=== PATIENT | male | born 1990 | race Caucasian/White ===

== ENCOUNTER → 2022-11-05 09:59 | Outpatient (BNVA) | payer BC, SELFPAY | PROVIDERS: PCP Internal Medicine; Visit Provider Nurse Practitioner Family | DX: Z13.89 Encounter for screening for other disorder (principal) ==

== ENCOUNTER → 2022-11-20 08:38 | Outpatient (BNVA) | payer OTHER, SELFPAY | PROVIDERS: PCP Internal Medicine; Visit Provider Physician Assistant | DX: S93.401A Sprain of unspecified ligament of right ankle, initial encounter (principal); W01.0XXA Fall on same level from slipping, tripping and stumbling without subsequent striking against object, initial encounter | CPT/HCPCS: 73610; 99203 ==

== ENCOUNTER 2022-11-20 10:26 | Outpatient (REF) | payer BC, SELFPAY ==
--- NOTE | ~2022-11-20 | MR_ITS ---
EXAMINATION: MR ANGIOGRAPHY HEAD WITHOUT CONTRAST MR VENOGRAPHY OF THE HEAD WITHOUT AND WITH CONTRAST CLINICAL INFORMATION: Trigeminal neuralgia. Follow-up. COMPARISON: MRI scan of the [facility] 08/07/2021. TECHNIQUE: 3D time of flight MR angiography of the intracranial vasculature was obtained. MR venography of the head was obtained using 2-D, 3-D and TRICKS sequences. Reformatted images were generated at the technologist workstation and source images were reviewed along with rotating MIPs. The degree of stenosis is based off NASCET criteria. FINDINGS: MRA head: In the anterior circulation, the distal internal carotid arteries within the neck appear normal. The intracranial internal carotid arteries and their bifurcations appear normal. The middle and anterior cerebral arteries bilaterally demonstrate normal caliber with no evidence of focal stenosis, aneurysm or vascular malformation. The anterior communicating artery is normal. In the posterior circulation, the vertebral arteries are codominant. The vertebral arteries intradurally have uniform caliber. The basilar artery appears normal. The posterior cerebral arteries have normal caliber. MRV head: The right transverse sinus is dominant and patent. The thinner left transverse sinus demonstrates flow throughout. There is an arachnoid granulation laterally in the left transverse sinus, demonstrated on the prior MRI brain. The sigmoid sinuses bilaterally are patent. There is asymmetric caliber of the proximal internal jugular veins, larger on the right, consistent with a normal variant. The superior sagittal sinus is well opacified. The internal cerebral veins, great vein of Thuan and straight sinus are patent. No vascular malformations are demonstrated. MR/MR venography head wo/w con IMPRESSION: 1. MR angiography of the intracranial circulation does not demonstrate focal stenosis, aneurysm or vascular malformation. The study is within normal limits. 2. The dural venous sinuses and internal jugular veins are patent bilaterally. The left transverse sinus is thinner compared to the right, consistent with a normal variant. The study redemonstrates an arachnoid granulation in the lateral left transverse sinus. There are no vascular malformations.
== END 2022-11-20 10:27 | disposition home or self-care (01) ==
LOC: HO.MRI 10:26
PROVIDERS: PCP Internal Medicine; Visit Provider Nurse Practitioner Family
DX: G50.0 Trigeminal neuralgia (principal); G51.39 Clonic hemifacial spasm, unspecified
CPT/HCPCS: 70544; 70546; A9585

== ENCOUNTER → 2022-11-27 11:13 | Outpatient (BNVA) | payer OTHER, SELFPAY | PROVIDERS: PCP Internal Medicine; Visit Provider Physician Assistant Medical | DX: S93.401A Sprain of unspecified ligament of right ankle, initial encounter (principal); W01.0XXA Fall on same level from slipping, tripping and stumbling without subsequent striking against object, initial encounter | CPT/HCPCS: 99213 ==

== ENCOUNTER 2022-12-02 14:02 | Outpatient (REF) | payer OTHER, SELFPAY ==
--- NOTE | ~2022-12-02 | XR_ITS ---
EXAMINATION: XR ANKLE, RIGHT XR FOOT, RIGHT CLINICAL INFORMATION: Pain and unspecified foot and ankle COMPARISON: Right ankle radiographs 11/20/2022 TECHNIQUE: Right ankle 3 views. Right foot 3 views. FINDINGS: Right ankle: Moderate soft tissue swelling is seen anterior and lateral to the ankle and proximal foot. The ankle mortise is symmetric without visible fracture or dislocation. No diastases of the distal tibiofibular syndesmosis. Right foot: Soft tissue swelling is identified laterally and dorsally. A displaced fracture is seen at the base of the fifth metatarsal bone extending to the tarsometatarsal joint. The bones of the foot are otherwise normal without joint space narrowing. XR/XR ankle RT min 3V IMPRESSION: Right ankle soft tissue swelling without visible fracture or dislocation. Displaced fracture is seen at the base of the fifth metatarsal bone extending to the tarsometatarsal joint.
--- NOTE | ~2022-12-02 | XR_ITS ---
EXAMINATION: XR ANKLE, RIGHT XR FOOT, RIGHT CLINICAL INFORMATION: Pain and unspecified foot and ankle COMPARISON: Right ankle radiographs 11/20/2022 TECHNIQUE: Right ankle 3 views. Right foot 3 views. FINDINGS: Right ankle: Moderate soft tissue swelling is seen anterior and lateral to the ankle and proximal foot. The ankle mortise is symmetric without visible fracture or dislocation. No diastases of the distal tibiofibular syndesmosis. Right foot: Soft tissue swelling is identified laterally and dorsally. A displaced fracture is seen at the base of the fifth metatarsal bone extending to the tarsometatarsal joint. The bones of the foot are otherwise normal without joint space narrowing. XR/XR foot RT min 3V IMPRESSION: Right ankle soft tissue swelling without visible fracture or dislocation. Displaced fracture is seen at the base of the fifth metatarsal bone extending to the tarsometatarsal joint.
== END 2022-12-02 14:03 | disposition home or self-care (01) ==
LOC: HO.HOSX 14:02
PROVIDERS: PCP Internal Medicine; Visit Provider Physician Assistant
DX: S92.351A Displaced fracture of fifth metatarsal bone, right foot, initial encounter for closed fracture (principal)
CPT/HCPCS: 73610; 73630; 99202

== ENCOUNTER 2022-12-30 07:55 | Outpatient (REF) | payer OTHER, SELFPAY ==
--- NOTE | ~2022-12-30 | XR_ITS ---
EXAMINATION: XR FOOT, RIGHT CLINICAL INFORMATION: Right foot pain COMPARISON: None available. TECHNIQUE: AP, lateral, and oblique views of the right foot. FINDINGS: There are subtle lucency seen in the base of fifth metatarsal question nondisplaced fracture. There is no significant soft tissue swelling. Rest of the right foot is normal. The ankle mortise and subtalar joints are normal. XR/XR foot RT min 3V IMPRESSION: Subtle lucency along the base of fifth metatarsal question fracture. No soft tissue swelling seen. Correlate with clinical exam. Rest of the right foot is unremarkable.
== END 2022-12-30 07:56 | disposition home or self-care (01) ==
LOC: HO.HOSX 07:55
PROVIDERS: Visit Provider Physician Assistant
DX: S92.351A Displaced fracture of fifth metatarsal bone, right foot, initial encounter for closed fracture (principal)
CPT/HCPCS: 73630; 99212

== ENCOUNTER 2023-01-27 07:13 | Outpatient (REF) | payer OTHER, SELFPAY ==
--- NOTE | ~2023-01-27 | XR_ITS ---
EXAMINATION: XR FOOT, RIGHT CLINICAL INFORMATION: Pain. COMPARISON: 12/30/2022 and 12/02/2022. TECHNIQUE: AP, lateral, and oblique views of the right foot. FINDINGS: There is no significant change in alignment of fracture base of the 5th metatarsal with some bony union being present. XR/XR foot RT min 3V IMPRESSION: No change in alignment of fracture base of the 5th metatarsal with some degree of bony union evident.
== END 2023-01-27 07:14 | disposition home or self-care (01) ==
LOC: HO.HOSX 07:13
PROVIDERS: Visit Provider Physician Assistant
DX: S92.351A Displaced fracture of fifth metatarsal bone, right foot, initial encounter for closed fracture (principal)
CPT/HCPCS: 73630; 99212

== ENCOUNTER → 2023-02-24 13:02 | Outpatient (BNVA) | payer OTHER, BC, SELFPAY | PROVIDERS: PCP Internal Medicine; Visit Provider Physician Assistant | DX: M25.571 Pain in right ankle and joints of right foot (principal); S92.351D Displaced fracture of fifth metatarsal bone, right foot, subsequent encounter for fracture with routine healing; W08.XXXD Fall from other furniture, subsequent encounter | CPT/HCPCS: 99212 ==

== ENCOUNTER → 2023-03-03 10:21 | Outpatient (BNVA) | payer OTHER, BC, SELFPAY | PROVIDERS: PCP Internal Medicine; Visit Provider Nurse Practitioner Family | DX: G50.0 Trigeminal neuralgia (principal); R53.83 Other fatigue; G51.39 Clonic hemifacial spasm, unspecified; G47.31 Primary central sleep apnea; M26.609 Unspecified temporomandibular joint disorder, unspecified side | CPT/HCPCS: 99212 ==

== ENCOUNTER 2023-03-13 09:03 | Outpatient (REF) | payer OTHER, BC, SELFPAY | END 2023-03-13 09:04 | disposition home or self-care (01) | LOC: HO.HOSX 09:03 | PROVIDERS: Visit Provider Physician Assistant | DX: Z13.89 Encounter for screening for other disorder (principal) ==

== ENCOUNTER 2023-03-19 12:05 | Outpatient (REF) | payer OTHER, SELFPAY ==
--- NOTE | ~2023-03-19 | XR_ITS ---
EXAMINATION: XR FOOT, RIGHT CLINICAL INFORMATION: Foot pain. COMPARISON: Plain films dating between January 27, 2023 and December 02, 2022. TECHNIQUE: AP, lateral, and oblique views of the right foot. FINDINGS: Examination again demonstrates an avulsion fracture at the base of metatarsal bone, similar compared with most recent prior study from January 27, 2023. No gross callus formation is appreciated. No other fracture or dislocation is seen. The joint spaces appear maintained. Bony mineralization appears preserved. No joint effusion is noted. There is a small Achilles calcaneal spur. XR/XR foot RT min 3V IMPRESSION: No significant radiographic change compared with January 27, 2023.
== END 2023-03-19 12:06 | disposition home or self-care (01) ==
LOC: HO.XRAY 12:05
PROVIDERS: PCP Internal Medicine; Visit Provider Physician Assistant
DX: M79.671 Pain in right foot (principal)
CPT/HCPCS: 73630

== ENCOUNTER 2023-03-27 14:00 | Outpatient (RCR) | payer OTHER, BC, SELFPAY ==
[2023-02-16 12:55] VITALS: BP 140/80; PULSE 98; O2SAT 97
--- NOTE | 2023-03-10 10:07 | MHC.PT.OD ---
[facility] [place] Office [place] Office [place] Office [address] Clemencia Black [address] [phone] F: [phone] F: [phone] F: [phone] F: [phone] Physical Therapy Daily Note Diagnosis: PT eval and treat: S92.351A Displaced fracture of fifth metatarsal bone, right foot, initial encounter for closed fracture, signed by Elsie Rogel PA-C 01/27/23 Date of Surgery: Date of Evaluation: 02/16/23 Date of Treatment: 03/09/23 Treatments to Date: Cancellations to Date: No Shows to Date: Authorized Visits: 5 Insurance End Date: Precautions/ Contraindications:clearance to wean from boot: ortho note 01/27/23 see note Subjective: Pt presents to office without boot, reports soreness under his R 5th ray, today Its only like a 4 or 5 when its really bad, but its kind of achy. The nerve pain on top of my foot is very sharp but come and goes. I have been doing stairs at home more so Im not sure if thats why its more sore of what. Pain Score and Location: 4 Objective Flowsheet: Tests & Measures XR/XR foot RT min 3V IMPRESSION: No change in alignment of fracture base of the 5th metatarsal with some degree of bony union evident. Dictated By:Ronen Carter MD Signed By:<Electronically signed by Ronen Carter MD in OV>02/04/23 1321 [address] [facility] [address] [place] [id number] Office Visit Report Signed Patient: Concetta Aranda#: [id number] : 1990Acct:[id number] Age/Sex: 32 / MADM/SER Date: 02/24/23 Loc: HO.HOSADM/SER Time:1302 Attending Provider: Elsie Rogel PA-C cc: JONATHAN GALLAGHER DO~ Intake Vital Signs 02/24/23 13:11 Height 5 ft 8 in Weight 170 lb BMI 25.8 Intake Visit Reasons: ov- Right ankle pain, DOI 11/20/21 Intake Note: Sami is a 32 year old male who presents today for a follow up of his right 5th metatarsal fx, DOI 11/20/21. Patient reports some achenes after walking without the boot. He states that on the top of his foot feels like there is a pinched nerve when he runs his finger on it. PT is going well. Allergies No Known Allergies Allergy (Verified 02/24/23 13:11) HPI ov- Right ankle pain, DOI 11/20/21 HPI Details 32-year-old male who presents in the office today for an evaluation of right ankle pain status post a right 5th metatarsal fracture, which occurred on 11/20/2022 status post a fall from a step stool, about 3 feet off the ground, at work. The patient reports some achiness after ambulating without the boot. He claims to have a pinching nerve on the top of his foot when he runs his finger on it. He confirms participating in physical therapy and states it is going well. He stated he started last Thursday02/16/2023. 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 Review of Systems Const All systems reviewed & are unremarkable except as noted in HPI and below Physical Exam Vital Signs: BMI result Body Mass Index 25.8 Const General: cooperative and no acute distress Orientation/consciousness: patient oriented x3 Resp Effort & Inspection: normal respiratory effort and able to speak in complete sentences Cardio Rate: regular rate Peripheral pulses: Peripheral pulses 2+ throughout GI Palpation (GI): Soft to palpation Skin Lesions: no lesions Rashes: no rashes Neuro General: patient oriented x3 Extrem Other: Right foot: No tenderness to palpation at the base of the 5th metatarsal. Slight hypersensitivity between the great toe and 2nd toe metatarsals. Slight stiffness with ankle ROM. Sensation intact. Pedal pulse intact. Psych Mental Status: mental status grossly normal Assessment & Plan Assessment & Plan (1) Fracture of fifth metatarsal bone of right foot: Code(s): S92.351A - Displaced fracture of fifth metatarsal bone, right foot, initial encounter for closed fracture Plan Mr. Aranda is a 32-year-old male who presents in the office today for an evaluation of right ankle pain status post a right 5th metatarsal fracture, which occurred on 11/20/2022 status post a fall from a step stool, about 3 feet off the ground, at work. The patient reports some achiness after ambulating without the boot. He claims to have a pinching nerve on the top of his foot when he runs his finger on it. He confirms participating in physical therapy and states it is going well. He stated he started last Thursday02/16/2023. The patient will continue to work with physical therapy on ROM. He will begin to wean out of the boot. He was instructed he is able to drive. He was given a return to work note stating he was return for light duty sedentary work in 2 weeks. Follow up will be in 6 weeks, or sooner if needed. Patient Instructions: Scribed for Elsie Rogel PA-C by Valery Alcala medical office receptionist assistant, on 02/24/2023 at 1:04 pm, EST. Your attestation Coding Level of Care Code Est Pt Level 3 (99529) Diagnoses Fracture of fifth metatarsal bone of right foot S92.351A Documented By:Elsie Rogel-C0/ 1307 Exercises Seated upright bike level 4.0 x 10 minutes for warm-up gentle AROM (no complaints of foot/ankle pain with this). 4 way SLR into flexion/hip adduction, prone hip extension and SL hip abd (completed bilaterally), step-up from 6 inch leading with R LE x 2sets 10R, lateral step-up/down from 6 inch (going from L<>R and R<>L). Ankle DF/PF/ IV/EV and R great toe extension ROM full compared to uninvolved extremity. Step-up 6 inch leading with R LE x 4 sets 10R, lateral step up with 6 inch step x 4 sets 10R (at completion, its getting a little sore ). Modalities Assessment: 03/09/23: Pt noted to attempt to crouch down (on his own accord) while in the office, reports increased pressure at site of fracture (advised to refrain from that due to load at site of 5th ray, educated needs to be able to walk/stand/steps prior to kneeling/crouching on injury site). Pt expressing he has anxiety regarding clearance for RTW light duty (has not spoken to employer and has not yet reached out his own to determine if light duty was an approved option). Therapist phoned [facility] ortho for patient while he was in the office to see if any further clarification of light duty has been established as pt reports his employer was requesting more info for work restrictions. Therapist was informed by ortho rep Trent patient has a tentative follow up on 04/13/23 but was advised to wean from boot in PT, work on ROM, RTW light duty in 2 weeks. Patient has weaned from walking boot, exhibits full ROM but expressing some mild soreness in foot at arrival of visit. He reports ongoing nerve pain dorsum of foot radiating to great toe intermittently and inquires about need for further imaging. Pt Therapist encouraged patient to monitor sx and bring to attention of orthopedics during next session should sx persist. Pt able to complete some step-ups with no report of pain, some fatigue/soreness verbalized with attempt of lateral step downs on 6 inch step (reported sx at end of 20 reps). Pt was advised to reach out to employer to determine status of ability to return to work light duty. Pt would likely benefit from another follow up with ortho prior to 04/13/23 to achieve further clarification /clearance for higher level> strengthening in PT as recent xray indicated partial union of fracture (not complete). Pt continues to be challenged with SLR 4 way ([id number]) and requires cues for technique. Pt noted to perseverate on concern for potential RTW light duty tomorrow and was encouraged to make calls to his employer to determine status which would help aide his anxiety. Pt has resumed driving (standard vehicle). 03/03/23: Pt expressing some mild sx with descending stairs on 2 inch step (R LE on steps, ascending with L LE) with sneaker on today. Improved tolerance after completing some gentle posteripr talo-crucal glides while standing/performing step-downs. Intermittent report of parathesias along dorsum of foot (parallel with anterior tibialis). Pt benefitted from cues for ther-ex, expressed fatigue with BAPS board for ROM activity. Pt awaiting clearance in his ability to RTW (reports waiting to hear back from environmental services). 02/27/23 Pt presents to office wearing a sneaker, reports he has fully D/C use of walking boot since his last ortho appt . Pt reports driving himself to therapy with good tolerance today (drives a standard vehicle). Reports feeling under the weather today with a history of head cold/congestion/stomach upset sx, denies fever, repots (-) covid test at home. AROM of the R ankle is near symmetrical to uninvolved side with minor ROM deficits in EV/IV. He was progressed in gentle CKC and ankle strength with good tolerance with no report of pain. He reports icing the foot prn status and iced at end of session today with good outcomes. He is awaiting clearance for RTW light duty status (reports his employed is seeking more clarification from ortho follow up re: restrictions). He reports planning on trying on a steel toe boot in prep to assess himself. He continues to use tylenol prn. 02/20/23 Pt able to complete CKC in office with good tolerance without use of book (sneaker on). Pt expressing he has a follow up with ortho next Thursday. Verbalizes goal of RTW, questions his ability to obtain light duty return. Pt inquires about clearance to drive- advised to consult with orthopedics about this at time of next appt. Weak knee and hip musculature. Significant toe out/hip ER compensation (+) genu varus alignment noted bilaterally. Pt advise to gradually wean from use of boot over the weekend as able (as long as pain-free). Pt is LHD UE, right foot dominant 32 y/o male, referred to PT from 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 Pt presents to PT in a tall walking boot with using bilateral axillary crutches. Pt expressing at time of appt with ortho he was advised to wean from use of tall walking boot but has yet to trial this expressed concern for how to do this. Pt was noted to attempt to ambulate in the office without crutches with tall walking boot with good ability, was advised to D/C crutches and wean from use of walking boot as able starting in small durations of time first. Pt exhibits impaired AROM of the R foot/ankle, impaired strength (DF/PF/IV/EV, hip abd ext R LE). Pt exhibits mild edema inferior/lateral aspect of R base 5th metatarsal. Pt exhibits impaired tolerance for weight-bearing outside of boot, impaired strength, impaired ability to rise>lower>squat>kneel and climb ladders. Pt is currently not driving. Pt remains OOW since date of injury. Pt would benefit from attending skilled PT services at a frequency of 2x/week 6 weeks to address impairments, implement HEP, and restore functional mobility tolerance to resume PLOF. Pt was advised re: use of ice, goals of therapy, and findings of evaluation. He was advised to bring a sneaker to next session and trial short durations of using a sneaker at home prior to next appt. PT Plan: 2x/week x 6 weeks Await clarification from ortho ? pause PT for next xray/healing vs. clearance for painfree strengthening Short Term Goals: 1. R ankle AROM to resemble L LE. 2. Strength R ankle EV/IV to 4/5. 3. Strength R ankle PF/DF 4/5. 4. Pt will wean from use of tall boot walking boot as able and D/C use of crutches. 5. 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 6. Symmetrical standing without walking boot R LE. 6. Negotiate 4 inch step with good dynamic balance independent of walking boot. Network Support Technician Goals: 1. Strength 5/5. 2. Pt will perform function squat 3:3 trials. 3. Pt will RTW full duty with good joint protection/mechanics. 4. Demonstrate dynamic balance reciprocal stair climbing > 6 inch step. 5. Rise from half knee position L>R and R>L. 6. Pain < 2/10 R ankle/foot R LE during functional mobility. 7. Reciprocal stair negotiation I of walking boot. 8. Resume jogging>running MOD I no AD. Electronically signed by: Rasheeda Jasso PT, DPT
== END 2023-09-22 11:25 | disposition home or self-care (01) ==
LOC: HO.PTWFD 14:00
PROVIDERS: Visit Provider Physician Assistant
DX: S92.351A Displaced fracture of fifth metatarsal bone, right foot, initial encounter for closed fracture (principal)
CPT/HCPCS: 97110; 97116; 97150; 97162; 97535

== ENCOUNTER 2023-04-13 11:01 | Outpatient (REF) | payer OTHER, SELFPAY ==
--- NOTE | ~2023-04-13 | XR_ITS ---
EXAMINATION: XR FOOT, RIGHT CLINICAL INFORMATION: Pain in unspecified foot COMPARISON: Prior radiographs of the foot, most recently 03/19/2023 TECHNIQUE: AP, lateral, and oblique views of the right foot. FINDINGS: Overall the appearance of the avulsive fracture at the base of the fifth metatarsal is similar to the most recent prior radiograph. There is no new fracture. Alignment is maintained and unchanged from prior studies. Soft tissues are unremarkable joint spaces are maintained. XR/XR foot RT min 3V IMPRESSION: Essentially no change in the appearance of healing fracture at the base of the fifth metatarsal.
== END 2023-04-13 11:02 | disposition home or self-care (01) ==
LOC: HO.HOSX 11:01
PROVIDERS: Visit Provider Physician Assistant
DX: S92.351D Displaced fracture of fifth metatarsal bone, right foot, subsequent encounter for fracture with routine healing (principal)
CPT/HCPCS: 73630

== ENCOUNTER 2023-04-13 11:28 | Outpatient (AMB) | payer OTHER, BC, SELFPAY ==
[2023-04-13 11:33] VITALS: BMI 24.5
--- NOTE | 2023-04-13 11:33 | MHC.OFFVIS ---
Intake Vital Signs 04/13/23 11:33 Height 5 ft 8 in Weight 161 lb BMI 24.5 Intake Visit Reasons: ov- Right ankle pain, DOI 11/20/21 Intake Note: Sami is a 32 year old male who presents today for a follow up of his right 5th metatarsal fx, DOI 11/20/21. Patient report some soreness on the top of his right foot. He states that physical therapy is going well. Denies numbness and tingling. Allergies No Known Allergies Allergy (Verified 04/13/23 11:33) HPI ov- Right ankle pain, DOI 11/20/21 HPI Details 32-year-old male who presents in the office today for a follow up of a right foot 5th metatarsal fracture, which occurred on 11/20/2022 status post a fall from a step stool, about 3 feet off the ground, at work. The patient reports some soreness on the top of the right foot. He confirms participating in physical therapy and states it is going well. He denies numbness or tingling. 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 Review of Systems Const All systems reviewed & are unremarkable except as noted in HPI and below Physical Exam Vital Signs: BMI result Body Mass Index 24.5 Const General: cooperative and no acute distress Orientation/consciousness: patient oriented x3 Resp Effort & Inspection: normal respiratory effort and able to speak in complete sentences Cardio Rate: regular rate Peripheral pulses: Peripheral pulses 2+ throughout GI Palpation (GI): Soft to palpation Skin Lesions: no lesions Rashes: no rashes Neuro General: patient oriented x3 Extrem Other: Right foot: No tenderness to palpation at the base of the 5th metatarsal. Slight hypersensitivity between the great toe and 2nd toe metatarsals. Full ROM. Sensation intact. Pedal pulse intact. Psych Mental Status: mental status grossly normal Assessment & Plan Assessment & Plan (1) Fracture of fifth metatarsal bone of right foot: Code(s): S92.351A - Displaced fracture of fifth metatarsal bone, right foot, initial encounter for closed fracture Plan Mr. Aranda is a 32-year-old male who presents in the office today for a follow up of a right foot 5th metatarsal fracture, which occurred on 11/20/2022 status post a fall from a step stool, about 3 feet off the ground, at work. The patient reports some soreness on the top of the right foot. He confirms participating in physical therapy and states it is going well. He denies numbness or tingling. The patient may return to work on 04/20/2023 for 6 hours a day for 2 weeks. 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 Follow up will be PRN, or sooner if needed. X-rays of the right foot which were obtained while in the office today and were reviewed by me, Elsie Rogel PA-C, redemonstration of the avulsion fracture at the base of the 5th metatarsal. Orders: Orders XR foot RT min 3V Today M79.673 - Pain in unspecified foot Patient Instructions: Scribed for Elsie Rogel PA-C by Valery Alcala medical receptionist medical assistant, on 04/13/2023 at 11:29 am, EST. Your attestation Coding Level of Care Code Global (77543) Diagnoses Fracture of fifth metatarsal bone of right foot S92.351A
== END 2023-04-13 11:51 | disposition home or self-care (01) ==
PROVIDERS: Visit Provider Physician Assistant
DX: S92.351A Displaced fracture of fifth metatarsal bone, right foot, initial encounter for closed fracture (principal)
CPT/HCPCS: 99213

== ENCOUNTER 2023-07-06 11:26 | Outpatient (AMB) | payer BC, SELFPAY ==
--- NOTE | 2023-07-06 11:31 | MHC.OFFVIS ---
Intake Vital Signs 07/06/23 11:32 Height 5 ft 8 in Weight 170 lb BMI 25.8 BP 150/90 H Blood Pressure Location Rt brachial Position Sitting Intake Visit Reasons: 4m follow up Trigeminal Neuralgia-Confirmed Intake Note: Patient presents for 4 month follow up. Patient states I've been talking to her, I think I'm going to start the medication by going up to 2. Allergies No Known Allergies Allergy (Verified 04/13/23 11:33) Medication List - Last Reconciled 07/06/23 by LEEANN Shannon acetaminophen 1,000 mg (2 x 500 mg) PO TID PRN amitriptyline 10 - 20 mg (1 - 2 x 10 mg) PO BEDTIME 30 days buprenorphine-naloxone 8-2 mg 10 mg sublingual DAILY magnesium oxide 400 mg PO BEDTIME 30 days oxcarbazepine 450 mg (1.5 x 300 mg) PO BID 30 days sertraline 50 mg PO DAILY testosterone cypionate 80 mg IM QWEEK HPI HPI Comments History of Present Illness Details 33-yr-old male presents for f/u visit. Pt denies any significant interval medical changes. Pt had reached out to the office, he was having some increased difficulty sleeping and facial pain. Pt was hesitant to increase Trileptal, and I advised him to try Amitriptyline 10-20mg qhs. He has started Amitriptyline 10mg qhs- which is has started helping him sleep better. He is still having some facial twitching. He is trying to reduce his Sertraline from 50mg to 25mg qd- as he feels he does not need it as much and it is causing some sexual side effects. He feels his anxiety is overall ok. Does not currently have a therapist- has a list to find a new one from his PCP. His father is currently being tested for PD. 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 Review of Systems Const All systems reviewed & are unremarkable except as noted in HPI and below Physical Exam Vital Signs: Last Vital Signs BP 150/90 H 07/06/23 11:32 BMI result Body Mass Index 25.8 Const General: cooperative and no acute distress Orientation/consciousness: patient oriented x3 HEENT Head: Yes normocephalic Resp Effort & Inspection: normal respiratory effort and able to speak in complete sentences Neuro General: patient oriented x3, gait normal and CN's II-XI intact bilaterally Cognition (Neuro): normal cognition Motor exam (neuro): 5/5 motor strength present throughout Psych Appearance: grossly normal Mental Status: mental status grossly normal Speech and movement: Normal speech and movement present Affect: normal affect Attitude: cooperative Thought process: Normal thought process present Thought content: Normal thought content present Insight: Good insight present (Psych) Judgement: Good judgement present (Psych) Assessment & Plan Assessment & Plan (1) 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 Last serum Na+- NL. Will request recent labs from PCP. Continue Amitriptyline- may increase from 10 to 20mg qhs. May use meloxicam prn. Magnesium for TMJ s/s. OTC nightguard. Future considerations: PT for TMJ tx. ? For sleep: Information given on improving sleep hygiene. Future considerations- f/u sleep study to assess status of CSA- suboxone may still induce CSA. ? f/u in 4 months or sooner prn. Medications: New buprenorphine ER (Sublocade) mg subcut Coding Level of Care Code Est Pt Level 4 (38933) Diagnoses Facial spasm G51.39 Trigeminal neuralgia G50.0 Central sleep apnea G47.31 TMJ (temporomandibular joint disorder) M26.149
[2023-07-06 11:32] VITALS: BP 150/90; BMI 25.8
== END 2023-07-06 12:22 | disposition home or self-care (01) ==
PROVIDERS: PCP Internal Medicine; Visit Provider Nurse Practitioner Family
DX: G51.39 Clonic hemifacial spasm, unspecified (principal); G50.0 Trigeminal neuralgia; G47.31 Primary central sleep apnea; M26.609 Unspecified temporomandibular joint disorder, unspecified side
CPT/HCPCS: 99214

== ENCOUNTER → 2023-07-06 11:26 | Outpatient (BNVA) | payer BC, SELFPAY | PROVIDERS: Visit Provider Nurse Practitioner Family | DX: G50.0 Trigeminal neuralgia (principal); R53.83 Other fatigue ==

== ENCOUNTER → 2023-07-28 10:44 | Outpatient (BNVA) | payer OTHER, SELFPAY | PROVIDERS: PCP Internal Medicine; Visit Provider Physician Assistant Medical | DX: S86.311A Strain of muscle(s) and tendon(s) of peroneal muscle group at lower leg level, right leg, initial encounter (principal); S93.491A Sprain of other ligament of right ankle, initial encounter; X50.1XXA Overexertion from prolonged static or awkward postures, initial encounter | CPT/HCPCS: 99203 ==

== ENCOUNTER → 2023-08-04 11:48 | Outpatient (BNVA) | payer OTHER, SELFPAY | PROVIDERS: PCP Internal Medicine; Visit Provider Physician Assistant Medical | DX: S86.311A Strain of muscle(s) and tendon(s) of peroneal muscle group at lower leg level, right leg, initial encounter (principal); S93.401A Sprain of unspecified ligament of right ankle, initial encounter; X50.1XXA Overexertion from prolonged static or awkward postures, initial encounter | CPT/HCPCS: 99213 ==

== ENCOUNTER 2023-08-13 11:37 | Outpatient (AMB) | payer OTHER, BC, SELFPAY ==
[2023-08-13 11:41] VITALS: BMI 25.8
--- NOTE | 2023-08-13 11:41 | A.OFFVIS_ITS ---
Intake Vital Signs 08/13/23 11:41 Height 5 ft 8 in Weight 170 lb BMI 25.8 Intake Visit Reasons: ov- Right ankle pain, DOI 07/24/23 Intake Note: Sami is a 32 year old male who presents today for a follow up of his right ankle pain, DOI 07/24/23. Patient reports still having pain, today he is having throbbing pain. He states that his pain is above his ankle Allergies No Known Allergies Allergy (Verified 08/13/23 11:41) HPI ov- Right ankle pain, DOI 07/24/23 HPI Details 33-year-old male who presents in the off ice today for an evaluation of right ankle pain. The patient was seen at [facility] on 07/28/2023 status post walking and twisting his right ankle which occurred on 07/24/2023. While in the office today the patient states he still has pain. He describes the pain as throbbing above the ankle. Patient has a history of right 5th metatarsal fracture, which occurred on 11/20/2022 status post a fall from a step stool, about 3 feet off the ground, at work. 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 No ecchymosis, erythema, or edema. Mild tenderness to palpation along the tibial and peroneal tendons. Full ROM. Negative anterior drawer. Sensation intact. Pedal Pulse intact. Assessment & Plan Assessment & Plan (1) Right ankle sprain: Code(s): S93.401A - Sprain of unspecified ligament of right ankle, initial encounter Qualifiers: Encounter type: initial encounter Involved ligament of ankle: unspecified ligament Qualified Code(s): S93.401A - Sprain of unspecified ligament of right ankle, initial encounter Plan Mr. Aranda is a 33-year-old male who presents in the office today for an evaluation of right ankle pain. The patient was seen at [facility] on 07/28/2023 status post walking and twisting his right ankle which occurred on 07/24/2023. While in the office today the patient states he still has pain. He describes the pain as throbbing above the ankle. Patient has a history of right 5th metatarsal fracture, which occurred on 11/20/2022 status post a fall from a step stool, about 3 feet off the ground, at work. The patient was given a lace up ankle brace, off the shelf, while in the office today. He was given a referral to physical therapy to work on ROM and strengthening. 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 Follow up will be PRN, or sooner if needed. X-rays of the right ankle which were obtained while in the office today and were reviewed by me, Elsie Rogel PA-C, revealed no acute fracture or dislocation. X-rays of the right ankle, obtained on 07/28/2023, revealed no acute fracture or dislocation. Orders: Orders XR ankle RT min 3V Today M25.579 - Pain in unspecified ankle and joints of unspecified foot PT Evaluation and Treatment Today S93.401A - Sprain of unspecified ligament of right ankle, initial encounter Patient Instructions: Scribed for Elsie Rogel PA-C by tam Sullivan scribe, on 08/13/2023 at 11:47 pm, EST. Coding Level of Care Code Est Pt Level 3 (26394) Diagnoses Sprain of right ankle, unspecified ligament, initial encounter S93.401A Encounter type: initial encounter Involved ligament of ankle: unspecified ligament
== END 2023-08-13 12:40 | disposition home or self-care (01) ==
PROVIDERS: PCP Internal Medicine; Visit Provider Physician Assistant
DX: S93.401A Sprain of unspecified ligament of right ankle, initial encounter (principal); X50.9XXA Other and unspecified overexertion or strenuous movements or postures, initial encounter; Z04.2 Encounter for examination and observation following work accident
CPT/HCPCS: 99213

== ENCOUNTER 2023-08-13 11:37 | Outpatient (REF) | payer BC, SELFPAY ==
--- NOTE | ~2023-08-13 | XR_ITS ---
EXAMINATION: XR ANKLE, RIGHT CLINICAL INFORMATION: Right ankle pain. History of fracture at base of fifth metatarsal. COMPARISON: , 08/01/2023 right ankle. Right foot 11/24/2022. TECHNIQUE: AP, oblique and 2 lateral views of the right ankle. FINDINGS: Redemonstration healing fracture at the base of the fifth metatarsal, incompletely imaged. Dedicated view of the foot should be obtained for better visualization if there is clinical concern. Small dorsal calcaneal enthesophyte. Small joint effusion. Redemonstration of borderline narrowing of the lateral collateral of the ankle mortise, possibly related to patient positioning. Evaluation limited on the AP view due to positioning. Repeat AP view could be obtained at no charge to the patient and physician was obtained, an addendum will be dictated. XR/XR ankle RT min 3V Impression: 1. Redemonstration healing fracture at the base of the fifth metatarsal, incompletely imaged. Dedicated view of the foot should be obtained for better visualization if there is clinical concern. 2. Redemonstration of borderline narrowing of the lateral gutter of the ankle mortise, possibly related to patient positioning. 3. Evaluation limited on the AP view due to positioning. Repeat AP view could be obtained at no charge to the patient and physician was obtained, an addendum will be dictated.
== END 2023-08-13 11:38 | disposition home or self-care (01) ==
LOC: HO.HOSX 11:37
PROVIDERS: PCP Internal Medicine; Visit Provider Physician Assistant
DX: S93.401A Sprain of unspecified ligament of right ankle, initial encounter (principal)
CPT/HCPCS: 73610; 99212

== ENCOUNTER 2023-09-24 12:57 | Outpatient (AMB) | payer OTHER, BC, SELFPAY ==
--- NOTE | 2023-09-24 12:58 | MHC.OFFVIS ---
Intake Vital Signs 09/24/23 13:00 Height 5 ft 8 in Weight 170 lb BMI 25.8 Intake Visit Reasons: ov- MRI review right ankle Intake Note: Sami is a 33 year old male who presents today for a MRI review of his right ankle pain. Allergies No Known Allergies Allergy (Verified 09/24/23 12:59) HPI ov- MRI review right ankle HPI Details 33-year-old male who presents in the office today for a follow up of right ankle pain and review of his MRI. I last saw the patient in the office on 08/13/2023 when he was given a lace up ankle brace and was referred to physical therapy to work on ROM and strengthening. 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 No ecchymosis, erythema, or edema. Mild tenderness to palpation along the tibial and peroneal tendons. Full ROM. Negative anterior drawer. Sensation intact. Pedal Pulse intact. Assessment & Plan Assessment & Plan (1) Right ankle sprain: Code(s): S93.401A - Sprain of unspecified ligament of right ankle, initial encounter Qualifiers: Encounter type: initial encounter Involved ligament of ankle: unspecified ligament Qualified Code(s): S93.401A - Sprain of unspecified ligament of right ankle, initial encounter Plan Mr. Aranda is a 33-year-old male who presents in the office today for a follow up of right ankle pain and review of his MRI. I last saw the patient in the office on 08/13/2023 when he was given a lace up ankle brace and was referred to physical therapy to work on ROM and strengthening. The patient will continue to attend physical therapy until all sessions are completed. He can wear the lace up ankle brace as needed for pain. I have sent a prescription for Ibuprofen 800 mg PO TID to be coupled with OTC Tylenol. He reports he feels much better and his pain has drastically subsided. We discussed a steel toe boot with higher ankles as his shoes for work right now are steel toe, but they are more of a sneaker status. I think the work boot with high support will be better for support of the ankle with more stability and comfort. Follow up will be PRN, or sooner if needed. MRI of the right ankle, which was obtained on 09/14/2023 at [facility], revealed: 1. Partially visualized prominent marrow edema within the distal tibial metadiaphysis with adjacent soft tissue edema most prominent posteriorly, which is incompletely evaluated, but may reflect stress response from a more proximal tibial fracture versus other pathologic process within the more proximal tibia. Recommend dedicated imagining of the right tibia for further evaluation. 2. Obliquely oriented fracture line at the base of the 5th metatarsal with minimal adjacent marrow edema, which may reflect subacute nondisplaced fracture. 3. Marked narrowing at the dorsal calcaneocuboid joint with adjacent marrow and soft tissue edema, which may reflect nonosseous coalition or potentially osseous cotusion. Consider CT for better osseous evaluation. 4. Partially visualized edema like signal within the mid fifth metatarsal shaft, which is not well evaluated, but may reflect stress injury versus less likely complete fat saturation. Consider dedicated imaging of the right foot further evaluation. 5. Varus alignment of the foot. Mild peroneus brevis tendinopathy. 6. Fluid within the posterior tibial and flexor digitorum longus tendon sheaths, which may reflect tendonitis. 7. Sequelae of medial and lateral ankle sprain, as above. Medications: Refilled ibuprofen 800 mg PO TID 30 tabs 0RF Patient Instructions: Scribed for Elsie Rogel PA-C by tam Sullivan scribe, on 09/24/2023 at 1:00 pm, EST. Coding Level of Care Code Est Pt Level 3 (15519) Diagnoses Sprain of right ankle, unspecified ligament, initial encounter S93.401A Encounter type: initial encounter Involved ligament of ankle: unspecified ligament
[2023-09-24 13:00] VITALS: BMI 25.8
== END 2023-09-24 13:33 | disposition home or self-care (01) ==
PROVIDERS: PCP Internal Medicine; Visit Provider Physician Assistant
DX: S93.401A Sprain of unspecified ligament of right ankle, initial encounter (principal)
CPT/HCPCS: 99213

== ENCOUNTER → 2023-09-24 12:57 | Outpatient (BNVA) | payer OTHER, BC, SELFPAY | PROVIDERS: PCP Internal Medicine; Visit Provider Physician Assistant | DX: S93.401A Sprain of unspecified ligament of right ankle, initial encounter (principal) | CPT/HCPCS: 99212 ==

== ENCOUNTER 2023-10-01 10:00 | Outpatient (RCR) | payer OTHER, BC, SELFPAY ==
--- NOTE | 2023-08-25 12:38 | MHC.PT.EP ---
[facility] [place] Office [place] Office [place] Office [address] [phone] F: [phone] F: [phone] F: [phone] F: [phone] Physical Therapy Plan of Care Date of Evaluation: 08/25/23 Date of Surgery: Diagnosis: This is a 33 yo male presenting to skilled PT with a script for R ankle sprain. Assessment: This is a 33 yo male presenting to skilled PT with a script for R ankle sprain. Patient reporting that he was walking at work and twisted his R ankle (DOI 07/24/23). The patient was seen at [facility] on 07/28/2023 and is also being followed by ortho, the last visit on 08/13 (follow up as needed now). At this ortho appointment note states The patient was given a lace up ankle brace, off the shelf, while in the office today. He was given a referral to physical therapy to work on ROM and strengthening. 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 He is not actually back to work however due to paper work that was not filled out correctly. He now has soreness that is achy at the lateral lower leg now. He does have a small area of numbness at the superior aspect of his foot. Of note he also has a history of right 5th metatarsal fracture, which occurred on 11/20/2022 status post a fall from a step stool, about 3 feet off the ground while also at work. He was in an boot for a few months, he had 6 weeks of PT after this and then went back to work. Assessment reveals pain that ranges from up to a 8/10 at the worst. Patient demos decreased R ankle and hip ROM, strength of ankle and hip muscles, TTP at lateral lower leg, gastroc and fifth met, and impaired posture with forward head and rounded shoulders with decreased balance and gait pattern. Based on functional limitations, impaired QOL and pain tolerance patient is a good candidate for skilled PT 2x/wk for 4wks. Frequency and Duration: The patient will be seen 2x/wk for 4wks Short Term Goals: Patient will improve ankle ROM to WFL in 2 weeks Patient will demo normal gait on stairs without evidence of compensatory gait patterns in 2 weeks Patient will demo improved pain by at least 50% in 2 weeks Patient will report improved pain with driving in 2 weeks It Infrastructure Consultant Goals: Pt will demonstrate improved outcome measure by 5 points in 4 weeks for improved functional mobility. Pt will demonstrate ability to bend and lift WNL as well as ambulate holding a heavy load without evidence of ankle pain. Pt will return to work in full when medically cleared by MD in 4wks Pt will be I in HEP and compliant in 4wks Treatment Plan: Modalities to reduce pain, spasms and effusion. Manual therapy to restore motion and function. Therapeutic exercise to improve strength and flexibility. Neuromuscular re-education for posture and balance. Therapeutic activities to return to functional activities of daily living. Electronically signed by: Mandy Holt PT Please sign and return to therapist. Thank you for your referral.
--- NOTE | 2023-11-03 06:43 | MHC.PT.DC ---
[facility] [place] Office [place] Office [place] Office [address] [phone] F: [phone] F: [phone] F: [phone] F: [phone] Physical Therapy Discharge Report Diagnosis: This is a 33 yo male presenting to skilled PT with a script for R ankle sprain. Date of Surgery: Date of Evaluation: 08/25/23 Date of Discharge: 11/03/23 Treatments to Date: 7 Cancellations to Date: 0 No Shows to Date: 0 Discharge Status: Patient Elected to Stop Discharge Summary: Patient did not return or call for more PT. Chart was DC'd after not being at the facility for 30 days. He had been progressing, had returned to work in full and was doing well with self pain management. DC to HEP. Electronically signed by: Mandy Holt PT Please sign and return to therapist. Thank you for your referral.
== END 2023-11-03 06:44 | disposition home or self-care (01) ==
LOC: HO.PTCHIC 10:00
PROVIDERS: PCP Internal Medicine; Visit Provider Physician Assistant
DX: S93.401D Sprain of unspecified ligament of right ankle, subsequent encounter (principal)
CPT/HCPCS: 97110; 97112; 97140; 97161; 97164

== ENCOUNTER → 2024-04-10 20:30 | Outpatient (REF) | payer MEDICAID, SELFPAY | LOC: HO.SL 20:30 | PROVIDERS: Visit Provider Nurse Practitioner Family | DX: G47.31 Primary central sleep apnea (principal); R53.83 Other fatigue; R06.83 Snoring | CPT/HCPCS: 95810 ==

== ENCOUNTER → 2024-04-10 20:54 | Outpatient (BNV) | payer MEDICAID, SELFPAY | PROVIDERS: Visit Provider Psychiatry & Neurology Neurology | DX: R06.83 Snoring (principal) | CPT/HCPCS: 95810 ==

== ENCOUNTER 2024-09-23 15:38 | Outpatient (AMB) | payer MEDICAID, SELFPAY ==
--- NOTE | 2024-09-23 15:43 | A.OFFVIS_ITS ---
Intake Visit Reasons: Follow up Intake Note: Patient present for follow up. Patient still having sleep issues but pain is much better with trileptal and gabapentin. Allergies No Known Allergies Allergy (Verified 09/23/24 15:44) Medication List - Last Reconciled 09/23/24 by LEEANN Shannon acetaminophen 1,000 mg (2 x 500 mg) PO TID PRN amitriptyline 10 - 20 mg (1 - 2 x 10 mg) PO BEDTIME 30 days baclofen 10 mg PO BID PRN 14 days buprenorphine ER (Sublocade) mg subcut gabapentin 1 cap bid and 2 caps qhs orally .; 30 days ibuprofen 800 mg PO TID magnesium oxide 400 mg PO BEDTIME 30 days meloxicam 7.5 mg PO DAILY 14 days oxcarbazepine 450 mg (1.5 x 300 mg) PO BID 30 days sertraline 50 mg PO DAILY testosterone cypionate 80 mg IM QWEEK HPI Comments Details: 34-yr-old male presents for f/u visit for trigeminal neuralgia and sleep difficulties. Pt reports he had a bad case of bronchitis in the fall. He thinks possibly triggered by reaction to air quality in his new job. Pt had a flare-up of his trigemeinal pain over the summer- ? d/t the heat. We had increased Trileptal and Gabapentin at that time, which has been helpful. He is sleeping better, but still can have difficulty sleeping greater than 6 hrs per night. He stopped Amitriptyline, as it caused urinary retention. He stopped sertraline- seemed to have caused excessive yawning. He was then started on mirtazapine 15mg qhs- for sleep. He is exercising regularly- tries to work out right after work. Does take a pre workout drink, but contains some caffeine. Sometimes he may take this later in the evening if he is working out later in the evening. He had an in-lab PSG, in April 2024, did not show sleep apnea- AHI less than 1 per hour, O2 windy 90%, Periodic limb movements sleepof 23 per hour with arousal index of 2 per hour. He came of off Suboxone over a yr ago. He does sometimes notice if he extends his upper extremities and rotates them, at some point he will have a tremor. His father is currently being tested for PD. 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 Review of Systems ENT Reports change in voice Physical Exam Const General: cooperative and no acute distress Orientation/consciousness: patient oriented x3 HEENT Head: Yes normocephalic Resp Effort & Inspection: normal respiratory effort and able to speak in complete sentences Neuro Other: No visible postural tremor General: patient oriented x3, gait normal and CN's II-XI intact bilaterally Cognition (Neuro): normal cognition Motor exam (neuro): 5/5 motor strength present throughout Psych Appearance: grossly normal Mental Status: mental status grossly normal Speech and movement: Normal speech and movement present Affect: normal affect Attitude: cooperative Thought process: Normal thought process present Thought content: Normal thought content present Insight: Good insight present (Psych) Judgement: Good judgement present (Psych) Assessment & Plan Assessment & Plan (1) Trigeminal neuralgia: Comment: denies any autonomic s/s Code(s): G50.0 - Trigeminal neuralgia Category: Medical (2) 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 Continue Trileptal 450mg bid. Will request recent lab work from PCP office. Continue gabapentin 300 mg b.i.d. and 600 mg q.h.s. Continue Magnesium 400 mg q.h.s. May use meloxicam prn. OTC nightguard. Future considerations: PT for TMJ tx. ? For sleep: Reviewed in-lab sleep study, no evidence of sleep apnea, was mild periodic limb movement of sleep with arousal of just 2 per hour. Gabapentin would likely help with this as well. Concur with mirtazapine 15 mg q.h.s.. Reviewed simple strategies to optimize sleep hygiene: Avoiding caffeine 6 hours prior to going to sleep, maintaining a schedule bedtime. ? f/u in 6 months or sooner prn. Medications: New mirtazapine 15 mg PO BEDTIME Changed From gabapentin 1 cap bid and 2 caps qhs orally .; 30 days 120 caps 2RF To gabapentin 1 cap bid and 2 caps qhs orally .; 120 caps 6RF 30 days Refilled magnesium oxide may hold for loose stools 400 mg PO BEDTIME 30 tabs 6RF 30 days Discontinued amitriptyline Discontinued Reason: Doctor's Order 10 - 20 mg (1 - 2 x 10 mg) PO BEDTIME 30 days 60 tabs 3RF Coding Level of Care Code Est Pt Level 4 (60678) Diagnoses Trigeminal neuralgia G50.0 Facial spasm G51.39 TMJ (temporomandibular joint disorder) M26.609
== END 2024-09-23 16:19 | disposition home or self-care (01) ==
PROVIDERS: PCP Internal Medicine; Visit Provider Nurse Practitioner Family
DX: G50.0 Trigeminal neuralgia (principal); G51.39 Clonic hemifacial spasm, unspecified; M26.609 Unspecified temporomandibular joint disorder, unspecified side
CPT/HCPCS: 99214

== ENCOUNTER → 2024-09-23 15:38 | Outpatient (BNVA) | payer MEDICAID, SELFPAY | PROVIDERS: PCP Internal Medicine; Visit Provider Nurse Practitioner Family | DX: G50.0 Trigeminal neuralgia (principal); G51.39 Clonic hemifacial spasm, unspecified; M26.609 Unspecified temporomandibular joint disorder, unspecified side | CPT/HCPCS: 99212 ==

== ENCOUNTER 2025-03-27 15:24 | Outpatient (AMB) | payer MEDICAID, SELFPAY ==
--- NOTE | 2025-03-27 15:28 | A.OFFVIS_ITS ---
Vital Signs 03/27/25 15:30 Height 5 ft 8 in Weight 183 lb BMI 27.8 BP 140/76 H Blood Pressure Location Rt brachial Position Sitting Pulse 85 Pulse Source Pulse Oximeter Pulse Oximetry (%) 98 Oxygen Delivery Method Room Air Intake Visit Reasons: Follow up Intake Note: Patient presents follow up for Trigeminal neuralgia Supervisor Prep Required: No Accompanied by: Self / Same As Patient Allergies No Known Allergies Allergy (Verified 03/27/25 15:33) HPI Comments Details: History of Present Illness The patient is a 34-year-old male presenting with trigeminal neuralgia, facial spasm, and temporomandibular joint disorder. Patient denies any significant interval medical history changes. However, he does endorse an interval labs in alcohol use, which resulted in him violating his parole, thus had to serve a few months in senior living. When he was brought to senior living, he states he requested to be restarted on Suboxone while he states he has not use opioids in 20 years-as he thought this would help with his alcohol cravings. Since, Suboxone was transitioned to Sublocade injections, which he reports have been easier to manage than tapering off Suboxone tablets. He is currently on a breathalyzer program as part of his probation and is attending group therapy sessions. He states while he and his fiancee are committed to living sober. He has not experienced recent flare-ups of trigeminal neuralgia or TMJ disorder. The trigeminal neuralgia and TMJ disorder have been managed with Trileptal 450 mg twice a day, gabapentin 300 mg twice a day, gabapentin 600 mg at bedtime, and magnesium 400 mg daily at bedtime. Additionally, meloxicam has been used as needed, however he has not needed to use it recently. He has used a mouthguard is utilized for TMJ disorder. States he has recently had CBC and metabolic panel done through his engineer. The patient was previously advised to trial mirtazapine 15 mg at bedtime to aid with sleep disturbances. He reports that his sleep issues may be linked to the use of Suboxone, which he believes is causing difficulty sleep difficulties. Social History - Substance use: History of opiate and alcohol use, currently on Sublocade and breathalyzer program. - Family status: Engaged, with a fianc?e who is also in recovery. - Legal issues: On probation with a breathalyzer requirement. - Housing: Currently staying with a friend, working towards stable housing. Review of Systems - Neurological: Denies recent flare-ups of trigeminal neuralgia. - Sleep: Reports difficulty sleeping, possibly related to medication changes. 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 Physical Exam Vital Signs: Last Vital Signs Pulse 85 03/27/25 15:30 BP 140/76 H 03/27/25 15:30 Pulse Ox 98 03/27/25 15:30 Oxygen Delivery Method Room Air 03/27/25 15:30 BMI result Body Mass Index 27.8 Const General: cooperative and no acute distress Orientation/consciousness: patient oriented x3 HEENT Head: Yes normocephalic Resp Effort & Inspection: normal respiratory effort and able to speak in complete sentences Neuro Other: No visible postural tremor General: patient oriented x3, gait normal and CN's II-XI intact bilaterally Cognition (Neuro): normal cognition Motor exam (neuro): 5/5 motor strength present throughout Psych Appearance: grossly normal Mental Status: mental status grossly normal Speech and movement: Normal speech and movement present Affect: normal affect Attitude: cooperative Thought process: Normal thought process present Thought content: Normal thought content present Insight: Good insight present (Psych) Judgement: Good judgement present (Psych) Assessment & Plan Assessment & Plan (1) Trigeminal neuralgia: Comment: denies any autonomic s/s Code(s): G50.0 - Trigeminal neuralgia Category: Medical (2) 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 Code(s): G51.39 - Clonic hemifacial spasm, unspecified Category: Medical (3) TMJ (temporomandibular joint disorder): Code(s): M26.609 - Unspecified temporomandibular joint disorder, unspecified side Category: Medical Plan Discussion Notes During the visit, we discussed the management of trigeminal neuralgia and TMJ disorder with current medications, including Trileptal and gabapentin. We also addressed the patient's sleep disturbances, potentially linked to Sublocade tx despite compliance with low-dose mirtazapine.. The patient is advised to follow- up with psychiatry regarding his sleep difficulties, continue with group the rapy, reestablish care with individual psychotherapist, and follow-up with substance use disorder clinic as scheduled. Patient was informed and verbally consented to the use of an ambient scribe for clinic note documentation during this visit. Plan For trigeminal neuralgia and TMJ dysfunction: * Continue Trileptal 450mg bid. Will request recent lab work from PCP office. * Continue gabapentin 300 mg b.i.d. and 600 mg q.h.s. * Continue Magnesium 400 mg q.h.s. * May use meloxicam prn. * OTC nightguard. * Patient will forward us lab results, if not completed check CBC and CMP * Future considerations: PT for TMJ tx. ? For sleep: * Previous in-lab sleep study, no evidence of sleep apnea, was mild periodic limb movement of sleep with arousal of just 2 per hour. Gabapentin would likely help with this as well. * Continue mirtazapine 15 mg q.h.s. * Follow-up with psychiatry as scheduled * Reviewed simple strategies to optimize sleep hygiene: Avoiding caffeine 6 hours prior to going to sleep, maintaining a schedule bedtime. ? f/u in 6-9 months or sooner prn. Coding Level of Care Code Est Pt Level 4 (62499) Diagnoses Trigeminal neuralgia G50.0 Facial spasm G51.39 TMJ (temporomandibular joint disorder) M26.609
[2025-03-27 15:30] VITALS: BP 140/76; PULSE 85; O2SAT 98; BMI 27.8
== END 2025-03-27 16:40 | disposition home or self-care (01) ==
LOC: HO.HSMS 15:24
PROVIDERS: PCP Internal Medicine; Visit Provider Nurse Practitioner Family
DX: G50.0 Trigeminal neuralgia (principal); G51.39 Clonic hemifacial spasm, unspecified; M26.609 Unspecified temporomandibular joint disorder, unspecified side
CPT/HCPCS: 99214

== ENCOUNTER → 2025-03-27 15:24 | Outpatient (BNVA) | payer MEDICAID, SELFPAY | PROVIDERS: PCP Internal Medicine; Visit Provider Nurse Practitioner Family | DX: G50.0 Trigeminal neuralgia (principal); M26.609 Unspecified temporomandibular joint disorder, unspecified side; G51.39 Clonic hemifacial spasm, unspecified | CPT/HCPCS: 99212 ==